=== PATIENT | female | born 1965 | race Caucasian/White ===

== ENCOUNTER 2022-04-13 23:22 | Inpatient (IN) | payer MEDICAID ==
[~2022-04-13] VITALS: Ht 162.6 cm; Wt 60.8 kg
[2022-04-13 23:22] VITALS: BP_SYST 209
[2022-04-14] MEDS ORDERED: GLUCAGON,HUMAN RECOMBINANT 1 MG VIAL IM ONE
[2022-04-14] MEDS ORDERED: DEXTROSE 50% JECT 50 ML DISP.SYRIN ONE (00:01)
[2022-04-14] MEDS ORDERED: DEXTROSE 50% JECT 50 ML DISP.SYRIN IVP ONE ×3 (00:15→01:00)
[2022-04-14 00:24] LABS: BASOPHILS # (AUTO) 0.1 K/uL (0.0-0.2); BASOPHILS % (AUTO) 2.6 % (0.0-2.0); EOSINOPHILS # (AUTO) 0.3 K/uL (0.0-0.4); EOSINOPHILS % (AUTO) 4.9 % (0.0-4.0); HEMATOCRIT 28.6 % (36-48); HEMOGLOBIN 9.8 g/dL (12.0-16.0); LYMPHOCYTES # (AUTO) 1.4 K/uL (1.0-5.5); LYMPHOCYTES % (AUTO) 27.3 % (20.5-51.5); MEAN CORPUSCULAR HEMOGLOBIN 30 pg (27-31); MEAN CORPUSCULAR HGB CONC 34 % (32-36); MEAN CORPUSCULAR VOLUME 88 fL (79.0-98.0); MONOCYTES # (AUTO) 0.4 K/uL (0.0-1.0); MONOCYTES % (AUTO) 8.4 % (1.7-9.3); NEUTROPHILS # (AUTO) 2.9 K/uL (1.8-7.7); NEUTROPHILS % (AUTO) 56.8 % (40.0-70.0); PLATELET COUNT (AUTO) 246 K/uL (130-430); RED BLOOD CELL COUNT(AUTO) 3.27 MIL/uL (4.2-6.2); RED CELL DISTRIBUTION WIDTH 15.6 % (9.0-15.0); WHITE BLOOD COUNT (AUTO) 5.1 K/uL (4.8-10.8)
[2022-04-14 00:26] LABS: ANION GAP 8 (5-15); CALCIUM 9.3 mg/dL (8.4-11.0); CHLORIDE 101 mmol/L (98-107); CREATININE 5.45 mg/dL (0.55-1.30); GLUCOSE 64 mg/dL (70-99); POTASSIUM 4.3 mmol/L (3.5-5.1); SODIUM SERUM 139 mmol/L (136-145); UREA NITROGEN, BLOOD 37 mg/dL (8-21)
[2022-04-14 00:30] LABS: INR 0.9 (0.8-1.2); PROTHROMBIN TIME 9.9 SECS (9.5-12.5)
[2022-04-14 00:34] LABS: ALANINE AMINOTRANSFERASE 4 U/L (12-78); ALBUMIN 3.2 g/dL (3.4-4.8); ASPARTATE AMINOTRANSFERASE 10 U/L (10-37); TOTAL BILIRUBIN 0.1 mg/dL (0.0-1.0)
[2022-04-14 00:36] LABS: GFR AFRICAN AMERICAN 10 mL/min (>90)
[2022-04-14] MEDS ORDERED: ASPIRIN 81 MG TAB.CHEW PO ONE (00:45)
[2022-04-14] MEDS ORDERED: ACETAMINOPHEN 500 MG TABLET PO ONE (00:45)
[2022-04-14] MEDS ORDERED: ASPIRIN 81 MG TAB.CHEW ONE (03:41)
[2022-04-14] MEDS ORDERED: ACETAMINOPHEN 500 MG TABLET ONE (03:42)
[2022-04-14] MEDS ORDERED: cloNIDine HCL 0.1 MG TABLET PO ONE (07:30)
[2022-04-14] MEDS ORDERED: hydrALAZINE HCL 20 MG/ML VIAL IVP ONE (11:00)
[2022-04-14 12:30] VITALS: BP_SYST 138
[2022-04-14] MEDS ORDERED: LISI40TA13 PO (13:49)
[2022-04-14] MEDS ORDERED: ASPI-1393 PO (13:49)
[2022-04-14] MEDS ORDERED: HYDR-4038 PO (13:49)
[2022-04-14] MEDS ORDERED: LIP40 PO (13:49)
[2022-04-14] MEDS ORDERED: FERR210T PO (13:49)
[2022-04-14] MEDS ORDERED: CAT2PAT TD (13:49)
[2022-04-14] MEDS ORDERED: CINA30TA3 (13:49)
[2022-04-14] MEDS ORDERED: METO50TA7 PO (13:49)
[2022-04-14 18:33] VITALS: BP_SYST 138
[2022-04-14 20:00] VITALS: BP_SYST 180
[2022-04-14] MEDS: ATORVASTATIN 20 MG TABLET PO SCH (21:18)
[2022-04-14] MEDS: hydrALAZINE HCL 25 MG TABLET PO SCH (21:21)
[2022-04-15 04:00] VITALS: BP_SYST 153
[2022-04-15] MEDS ORDERED: METOPROLOL SUCCINATE 50 MG TAB.SR.24H (TOPROL XL) PO SCH (09:00)
[2022-04-15 09:24] VITALS: BP_SYST 175
[2022-04-15] MEDS: CINACALCET HCL 30 MG TABLET PO SCH (09:44)
[2022-04-15] MEDS: ASPIRIN 81 MG TABLET(ECOTRIN) PO SCH (09:45)
[2022-04-15] MEDS: hydrALAZINE HCL 25 MG TABLET PO SCH ×3 (09:46→21:27)
[2022-04-15] MEDS: lisinopriL 20 MG TABLET PO SCH (09:46)
[2022-04-15 13:44] VITALS: BP_SYST 175
[2022-04-15 18:05] VITALS: BP_SYST 127
[2022-04-15 20:00] VITALS: BP_SYST 180
[2022-04-15] MEDS: ATORVASTATIN 20 MG TABLET PO SCH (20:35)
[2022-04-15] MEDS: ACETAMINOPHEN 325 MG TABLET PO PRN (20:35)
[2022-04-15] MEDS: METOPROLOL TARTRATE 50 MG TABLET PO SCH (20:36)
[2022-04-16 00:05] VITALS: BP_SYST 182
[2022-04-16] MEDS: hydrALAZINE HCL 25 MG TABLET PO SCH ×3 (06:24→21:54)
[2022-04-16 07:46] VITALS: BP_SYST 155
[2022-04-16] MEDS: CINACALCET HCL 30 MG TABLET PO SCH (08:30)
[2022-04-16] MEDS: lisinopriL 20 MG TABLET PO SCH (08:32)
[2022-04-16] MEDS: ASPIRIN 81 MG TABLET(ECOTRIN) PO SCH (08:32)
[2022-04-16] MEDS: METOPROLOL TARTRATE 50 MG TABLET PO SCH ×2 (08:32→21:54)
[2022-04-16 11:31] VITALS: BP_SYST 155
[2022-04-16 11:57] VITALS: BP_SYST 182
[2022-04-16] MEDS: ACETAMINOPHEN 325 MG TABLET PO PRN (12:10)
[2022-04-16] MEDS ORDERED: hydrALAZINE HCL 25 MG TABLET PO SCH (14:15)
[2022-04-16] MEDS ORDERED: NIFEdipine 30 MG TAB.ER.24 PO ONE (16:45)
[2022-04-16] MEDS: INSULIN REGULAR, HUMAN 100 UNITS/ML, 10 ML VIAL (humuLIN R) SUBCUT PRN ×2 (17:10→22:07)
[2022-04-16] MEDS: CALCIUM ACETATE 667 MG CAP PO SCH (17:13)
[2022-04-16 17:46] VITALS: BP_SYST 140
[2022-04-16 19:58] VITALS: BP_SYST 193
[2022-04-16] MEDS: ATORVASTATIN 20 MG TABLET PO SCH (21:54)
[2022-04-17 00:10] VITALS: BP_SYST 133
[2022-04-17] MEDS: ACETAMINOPHEN 325 MG TABLET PO PRN ×2 (01:07→08:16)
[2022-04-17 03:18] VITALS: BP_SYST 145
[2022-04-17] MEDS: hydrALAZINE HCL 25 MG TABLET PO SCH ×2 (06:00→13:11)
[2022-04-17 07:39] LABS: BASOPHILS % (AUTO) 0.3 % (0.0-2.0); EOSINOPHILS # (AUTO) 0.2 K/uL (0.0-0.4); EOSINOPHILS % (AUTO) 2.1 % (0.0-4.0); HEMATOCRIT 33.2 % (36-48); HEMOGLOBIN 11.1 g/dL (12.0-16.0); LYMPHOCYTES # (AUTO) 2.1 K/uL (1.0-5.5); LYMPHOCYTES % (AUTO) 27.4 % (20.5-51.5); MEAN CORPUSCULAR HEMOGLOBIN 30 pg (27-31); MEAN CORPUSCULAR HGB CONC 33 % (32-36); MEAN CORPUSCULAR VOLUME 88 fL (79.0-98.0); MONOCYTES # (AUTO) 0.6 K/uL (0.0-1.0); MONOCYTES % (AUTO) 8.2 % (1.7-9.3); NEUTROPHILS # (AUTO) 4.7 K/uL (1.8-7.7); PLATELET COUNT (AUTO) 288 K/uL (130-430); RED BLOOD CELL COUNT(AUTO) 3.76 MIL/uL (4.2-6.2); RED CELL DISTRIBUTION WIDTH 15.6 % (9.0-15.0); WHITE BLOOD COUNT (AUTO) 7.6 K/uL (4.8-10.8)
[2022-04-17 07:55] LABS: ALBUMIN 3.3 g/dL (3.4-4.8); CALCIUM 9.5 mg/dL (8.4-11.0); POTASSIUM 5.2 mmol/L (3.5-5.1); TOTAL BILIRUBIN 0.2 mg/dL (0.0-1.0)
[2022-04-17 08:00] VITALS: BP_SYST 145
[2022-04-17] MEDS: NIFEdipine 30 MG TAB.ER.24 PO SCH ×2 (08:17→08:26)
[2022-04-17] MEDS: lisinopriL 20 MG TABLET PO SCH ×2 (08:17→08:26)
[2022-04-17] MEDS: CALCIUM ACETATE 667 MG CAP PO SCH ×2 (08:18→13:12)
[2022-04-17] MEDS: CINACALCET HCL 30 MG TABLET PO SCH (08:18)
[2022-04-17] MEDS: ASPIRIN 81 MG TABLET(ECOTRIN) PO SCH ×2 (08:18→08:27)
[2022-04-17] MEDS: METOPROLOL TARTRATE 50 MG TABLET PO SCH ×2 (08:18→08:28)
[2022-04-17] MEDS ORDERED: FOLIC ACID 1 MG TABLET PO SCH (09:00)
[2022-04-17] MEDS ORDERED: VITAMIN B COMPLEX WITH C TAB/CAP PO SCH (09:00)
[2022-04-17 09:39] LABS: CREATININE 7.78 mg/dL (0.55-1.30)
[2022-04-17 12:00] VITALS: BP_SYST 117
[2022-04-17 16:00] VITALS: BP_SYST 116
[2022-04-17] MEDS ORDERED: EPOETIN ALFA-EPBX 3,000 UNITS/ML VIAL SUBCUT SCH (17:00)
== END 2022-04-17 17:28 | disposition home or self-care (01) | DRG 47 ==
LOC: SED 23:22 → EDBD 04-14 07:46 → STU 04-14 07:46 → SMU 04-17 07:13
PROVIDERS: ADMIT Family Medicine; ATTEND Family Medicine
PROC: 5A1D70Z Performance of Urinary Filtration, Intermittent, Less than 6 Hours Per Day (ICD-10-PCS; principal; 2022-04-15)
DX: G45.9 Transient cerebral ischemic attack, unspecified (principal); I12.0 Hypertensive chronic kidney disease with stage 5 chronic kidney disease or end stage renal disease; N18.6 End stage renal disease; Z20.822 Contact with and (suspected) exposure to COVID-19; D64.9 Anemia, unspecified; Z79.899 Other long term (current) drug therapy; Z86.73 Personal history of transient ischemic attack (TIA), and cerebral infarction without residual deficits; Z99.2 Dependence on renal dialysis; Z79.82 Long term (current) use of aspirin
CPT/HCPCS: 36415; 70450-TC; 70551; 71045; 76376; 80053; 82962; 84100; 84484; 85025; 85610-TC; 85730-TC; 86886; 86900; 86901; 87081; 90935; 90937; 92610-GN; 93005; 93880; 95816; 96374; 99291; G0378; J0360; J1815; Q5106